=== PATIENT | female | born 1940 | race Caucasian/White ===

== ENCOUNTER 2023-01-01 10:08 | Outpatient (CLI) | payer MEDICARE | END 2023-01-01 23:59 | disposition critical access hospital (66) | LOC: EMS 10:08 | DX: S01.81XA Laceration without foreign body of other part of head, initial encounter (principal); S09.92XA Unspecified injury of nose, initial encounter; M25.561 Pain in right knee; W01.0XXA Fall on same level from slipping, tripping and stumbling without subsequent striking against object, initial encounter; Y93.01 Activity, walking, marching and hiking | CPT/HCPCS: A0425; A0429 ==

== ENCOUNTER 2023-01-01 10:18 | Emergency (ER) | payer MEDICARE ==
[2023-01-01] MEDS ORDERED: LIDOCAINE-EPINEPH-TETRACAINE 3 ML SYRINGE TOP STA (10:21)
--- NOTE | 2023-01-01 10:26 | ED Physician Documentation ---
PD HPI HEAD INJURY - Stated complaint Stated Complaint: FALL - History obtained from History obtained from: Patient, EMS - Additional information Additional information: Patient is an 82-year-old female presenting for evaluation of a head injury that occurred just prior to arrival. Patient was taking out her recycling when she slipped on some gravel and struck her right knee and then hit her head. She denies LOC. She was able to yell out for help from a neighbor.She does not take a blood thinner. Her last tetanus was 2 years ago. Review of Systems Constitutional: denies: Fever Cardiac: denies: Chest pain / pressure Respiratory: denies: Dyspnea GI: denies: Abdominal Pain Musculoskeletal: reports: Joint pain Neurologic: reports: Head injury PD PAST MEDICAL HISTORY - Present Medications Home Medications: Ambulatory Orders Medication Instructions Recorded Confirmed Levothyroxine [Synthroid] 25 mcg PO QDAC 01/01/23 01/01/23 - Allergies Allergies/Adverse Reactions: Allergies Allergy/AdvReac Type Severity Reaction Status Date / Time Iodinated Contrast Media AdvReac Unknown Verified 01/01/23 10:26 PD ED PE NORMAL - General General: Alert and oriented X 3, No acute distress, Well developed/nourished - HEENT HEENT: PERRL, EOMI, Moist mucous membranes, Pharynx benign, Other (Laceration to forehead, nose, upper lip) - Neck Neck: Supple, no meningeal sign, No bony TTP. No: C-Spine cleared by NEXUS criteria (?distracting injury ) - Cardiac Cardiac: RRR, No murmur, Strong equal pulses - Respiratory Respiratory: No respiratory distress, Clear bilaterally - Abdomen Abdomen: Soft, Non tender - Extremities Extremities: Other (Tenderness to right knee, pain on range of motion, no pelvic instability or tenderness, normal range of motion at left knee) - Neuro Neuro: Alert and oriented X 3, senior court office assistant 2-12 intact, No motor deficit, No sensory deficit, Normal speech Eye Opening: Spontaneous Motor: Obeys Commands Verbal: Oriented GCS Score: 15 Results - Vitals Vitals: Vital Signs - 24 hr 01/01/23 01/01/23 10:23 12:11 Temperature 36.6 C Heart Rate 61 64 Respiratory 19 20 Rate Blood Pressure 140/56 H 132/65 H O2 Saturation 99 100 Oxygen O2 Source Room air Procedures - Laceration (location) Forehead Length in cm: 3 Wound type: Stellate, Clean Anesthesia: LET, Lidocaine 1% with epi Wound preparation: Hibiclens, Irrigated copiously NS Skin layer closure: Size #-0 - enter number (5), Sutures - enter # (6) Other: Patient tolerated well, No complications, Neurovascular intact, Tetanus UTD Upper lip Length in cm: 1 Wound type: Irregular Anesthesia: LET, Lidocaine 1% with epi Wound preparation: Hibiclens, Irrigated copiously NS Skin layer closure: Size #-0 - enter number (5), Sutures - enter # (2) Other: Patient tolerated well, No complications, Neurovascular intact, Tetanus UTD PD Medical Decision Making - ED course Complexity details: reviewed results, re-evaluated patient, d/w patient, d/w family (Daughter) ED course: Patient is a 89-year-old female presenting for evaluation after a ground-level fall. Patient tripped over gravel while taking out the recycling bin and fell forward striking her face. Her tetanus is up-to-date per patient. CT head, cervical spine, maxillofacial and XR right knee Were ordered and reviewed by me. Patient does have a nasal bone fracture. Otherwise I do not see signs of other injury. Patient had numerous abrasions to the face including 2 lacerations requiring sutures. Wounds were copiously irrigated and cleaned. A total of 8 stitches were placed. Patient is ambulatory here and able to walk to the bathroom without any symptoms. She is counseled on wound care instructions, need for suture removal as well as close follow-up with PCP. Patient and daughter are advised on concerning symptoms to return for. Departure - Departure Disposition: 01 Home, Self Care Clinical Impression: Facial abrasion, Nasal bone fracture, Head injury, Facial laceration Condition: Stable Instructions: ED Head Injury Closed, ED Laceration Facial Sutr Tape Follow-Up: Kaylie Philippe MD [Primary Care Provider] - Comments: You were evaluated after a fall and a head injury. Your CT scan did show that you have a fracture to your nasal bone. Otherwise there are no other injuries noted on your CT scans or on your knee x-ray. You do have several abrasions to your face including 2 larger lacerations requiring stitches. You have a total of 8 stitches to your face. These should be removed in approximately 5 to 7 days.You can return to the ER or go to a walk-in clinic to have them removed. I would recommend close follow-up with your primary care provider. Continue with anti-inflammatory such as acetaminophen for any areas of pain. I would strongly encourage ice to your face for the next several days to help with any swelling. Return to the ER with any new or worsening Symptoms. Forms: PCP List Discharge Date/Time: 01/01/23 13:53
--- NOTE | 2023-01-01 11:35 | XRAY Report ---
PROCEDURE: Knee 3 View RT INDICATIONS: fall/pain TECHNIQUE: 3 views of the right knee(s) were acquired. COMPARISON: None. FINDINGS: Bones: No fractures or dislocations. No suspicious bony lesions. Patellofemoral joint space narrowi ng Soft tissues: No knee joint effusion. No suspicious soft tissue calcifications or masses. IMPRESSION: Patellofemoral joint space narrowing. No fracture or joint effusion Reviewed by: Rodrigo Esquivel MD on 01/01/2023 10:34 AM [facility] Approved by: Rodrigo Esquivel MD on 01/01/2023 10:34 AM [facility] Station ID: [id number]
[2023-01-01 12:27] VITALS: BP 132/65
--- NOTE | 2023-01-01 12:40 | CT Report ---
PROCEDURE: CT cervical spine without contrast INDICATIONS: fall/head injury TECHNIQUE: Noncontrast 3 mm thick sections acquired from the skull base to the T4 level. Sagittal and coronal r eformats were then constructed. For radiation dose reduction, the following was used: automated exp osure control, adjustment of mA and/or kV according to patient size. COMPARISON: None. FINDINGS: Image quality: Excellent. Bones: There is straightening of normal cervical lordosis present. Bilateral facet degenerative ankyl osis at the C3-4 associated with grade 1 anterior spondylolisthesis C4 on C5. Degenerative subchondra l cyst noted in the odontoid related to the C1-2 joint. Disc space narrowing and arthropathy present lower cervical spine. No fracture or traumatic malalignment Soft tissues: Prevertebral soft tissues are normal in thickness. No paravertebral hematomas. No ap ical pneumothoraces. IMPRESSION: No evidence of fracture or traumatic malalignment. 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
--- NOTE | 2023-01-01 12:47 | CT Report ---
PROCEDURE: CT brain without contrast INDICATIONS: fall/head injury TECHNIQUE: Noncontrast 4.5 mm thick angled axial sections acquired from the foramen magnum to the vertex. For r adiation dose reduction, the following was used: automated exposure control, adjustment of mA and/or kV according to patient size. COMPARISON: None. FINDINGS: Image quality: Excellent. CSF spaces: Basal cisterns are patent. No extra-axial fluid collections. Ventricles are normal in size and shape. Brain: No midline shift. No intracranial masses or hemorrhage. Erickson-white matter interface is norm al. Moderate atrophy and multifocal white matter chronic ischemic change Skull and face: Calvarium and visualized facial bones are intact, without suspicious lesions. Right frontal scalp hematoma. Partially imaged nasal bone fracture Sinuses: Visualized sinuses and mastoids are clear. IMPRESSION: Right frontal scalp hematoma without underlying skull fracture or intracranial hemorrhage Partially imaged nasal bone fracture Reviewed by: Rodrigo Esquivel MD on 01/01/2023 11:46 AM [facility] Approved by: Rodrigo Esquivel MD on 01/01/2023 11:46 AM [facility] Station ID: [id number]
--- NOTE | 2023-01-01 12:57 | CT Report ---
PROCEDURE: Maxillofacial CT without contrast INDICATIONS: fall/head injury TECHNIQUE: Noncontrast 1.5 mm thick axial images acquired from the mandible through the frontal sinuses, with co barbara and sagittal reformatting. For radiation dose reduction, the following was used: automated ex posure control, adjustment of mA and/or kV according to patient size. COMPARISON: None. FINDINGS: Image quality: Excellent. Bones and teeth: Comminuted nasal bone fracture noted to. Both orbits are intact without evidence of orbital floor fracture. Zygomatic arches are unremarkable. 3 mm foreign body near the bridge of the n ose Sinuses: Paranasal sinuses are aerated, without fluid levels, mucosal thickening, or mucoceles. Mas toid air cells are aerated. Soft tissues: No edema, masses, or fluid collections. No enlarged lymph nodes. No soft tissue lace rations or debris. Vascular: Visualized vascular structures appear normal in the absence of contrast. Bony vascular fo ramina and canals are intact. IMPRESSION: Comminuted nasal bone fracture. Small soft tissue foreign body near the bridge of nose m easures 3 mm Reviewed by: Rodrigo Esquivel MD on 01/01/2023 11:56 AM [facility] Approved by: Rodrigo Esquivel MD on 01/01/2023 11:56 AM [facility] Station ID: [id number]
== END 2023-01-01 13:53 | disposition home or self-care (01) ==
LOC: ED 10:18
DX: S09.90XA Unspecified injury of head, initial encounter (principal); S01.81XA Laceration without foreign body of other part of head, initial encounter; S01.511A Laceration without foreign body of lip, initial encounter; S02.2XXA Fracture of nasal bones, initial encounter for closed fracture; W01.0XXA Fall on same level from slipping, tripping and stumbling without subsequent striking against object, initial encounter; Y93.E9 Activity, other interior property and clothing maintenance; Y92.008 Other place in unspecified non-institutional (private) residence as the place of occurrence of the external cause
CPT/HCPCS: 12013; 99283; 99284

== ENCOUNTER 2023-04-17 14:14 | Outpatient (CLI) | payer MEDICARE ==
--- NOTE | 2023-04-26 15:36 | Mammography Report ---
BILATERAL DIGITAL SCREENING MAMMOGRAM 3D/2D: 04/17/2023 CLINICAL: Routine screening. No prior exams were available for comparison. There are scattered areas of fibroglandular density in both breasts (category b / 25%-50% glandular t issue). There is an asymmetry in the right breast middle depth lateral region seen on the craniocaudal view o nly. No other significant masses, calcifications, or other findings are seen in either breast. IMPRESSION: INCOMPLETE: NEEDS ADDITIONAL IMAGING EVALUATION The asymmetry in the right breast is indeterminate. Additional views with possible ultrasound are re commended. Based on the Tyrer Cuzick model (a risk assessment model) the patients lifetime risk is 0.9% and her 10 year risk is 0.0%. According to the ACR, ACS, and NCCN guidelines, an annual breast MRI exam nicole g with mammogram is recommended if the patients lifetime risk is 20% or greater. This exam was interpreted at Station ID: [id number]. NOTE: For mammograms, a report in lay terms will be sent to the patient. Approximately 15% of breast malignancies will not be visualized mammographically. In the management of a palpable breast mass, a negative mammogram must not discourage biopsy of a clinically suspicious lesion. Electronically Signed By: Carlos [email or web address]/[email or web address]:04/26/2023 08:17:45 ACR BI-RADS Category 0: Incomplete 3340F PARENCHYMAL PATTERN: (A) - The breast(s) demonstrate(s) scattered fibroglandular densities. BI-RADS CATEGORY: (0) - 0 Mammo and [place] [id number] Immediate follow-up LATERALITY: (R)
== END 2023-04-17 14:15 | disposition home or self-care (01) ==
LOC: DI 14:14
PROVIDERS: ATTEND Internal Medicine
DX: Z12.31 Encounter for screening mammogram for malignant neoplasm of breast (principal); R92.323 Mammographic fibroglandular density, bilateral breasts; R92.8 Other abnormal and inconclusive findings on diagnostic imaging of breast